=== PATIENT | female | born 1990 | race Caucasian/White ===

== ENCOUNTER 2019-04-03 20:36 | Inpatient (IN) | payer OTHER ==
--- NOTE | 2019-04-03 21:40 | HP ---
Past Medical History - Primary Care Physician PCP:: Christen Salazar - Admission Chief Complaint: 29yo P1 called office earlier c/o seeing stars and chest pain, + FM, no ctx, no VB, no LOF. She was instructed to go to L&D for evaluation of PEC for which she was followed and for possible delivery. She was told not to eat. Patient reported eating a muffin after recieving instructions. History of Present Illness: 1. Prior c/s x 1 for repeat c/section 2. Followed for flactuating BPs, 24hr UA ~300mg/24hr History Source: Patient, Medical Record Limitations to Obtaining History: No Limitations - Past Medical History ...: 2 ...Para: 1 (c/section @ term) ... Weeks Gestation by Dates: 36 - Past Surgical History Past Surgical History: Yes: Hx Myomectomy: No Hx Transabdominal Cerclage: No - Smoking History Have you smoked in the past 12 months: No - Alcohol/Substance Use Hx Alcohol Use: No History of Substance Use: reports: None - Social History Usual Living Arrangement: Yes: With Spouse History of Recent Travel: No Home Medications - Allergies Allergies/Adverse Reactions: Allergies Allergy/AdvReac Type Severity Reaction Status Date / Time No Known Allergies Allergy Verified 02/20/19 16:47 - Home Medications Home Medications: Ambulatory Orders Pnv 29-1 Tablet 1 tab PO DAILY 04/03/19 Review of Systems - Review of Systems Constitutional: reports: No Symptoms Eyes: reports: No Symptoms HENT: reports: No Symptoms Neck: reports: No Symptoms Cardiovascular: reports: No Symptoms Respiratory: reports: No Symptoms Gastrointestinal: reports: No Symptoms Genitourinary: reports: No Symptoms Breasts: reports: No Symptoms Reported Musculoskeletal: reports: No Symptoms Integumentary: reports: No Symptoms Neurological: reports: No Symptoms Endocrine: reports: No Symptoms Hematology/Lymphatic: reports: No Symptoms Psychiatric: reports: No Symptoms Physical Exam - Maternity Constitutional: Yes: Well Nourished, No Distress, Calm Eyes: Yes: WNL, Conjunctiva Clear HENT: Yes: WNL, Atraumatic, Normocephalic Neck: Yes: WNL, Supple, Trachea Midline Cardiovascular: Yes: WNL, Regular Rate and Rhythm Lungs: Clear to auscultation Breast(s): Yes: WNL - Abdominal Exam/OB Fundal Height: 36 (mild RUQ tenderness) Number of Fetuses: Single Presentation: Vertex Contractions: Yes Regularity: Irritability Intensity: Unaware Monitor Mode: External Heart Rate (range): 140 Category: I Accelerations: Uniform Decelerations: None - Vaginal Exam/OB Vaginal Bleediing: No Speculum Exam: No Dilatation (cm): deferr Amniotic Membrane Status: Intact - Physical Exam Musculoskeletal: Yes: WNL Extremities: Yes: WNL Edema: No Integumentary: Yes: WNL Deep Tendon Reflex Grade: Normal +2 ...Motor Strength: WNL Psychiatric: Yes: WNL, Alert, Oriented Assessment/Plan 29yo P1 @ 36wks with sever Preeclampsia secondary to neurological complains Labs without evidence of HELLP Admit to L&D start MgSo4 for seizure prophylaxis Administer Celestone for prematurity Keep NPO, she last ate at 6pm Abrams to monitor UA output Labs with Mg level Q 4 hr to monitor for signs of HELLP deliver if any signs of worsening disease or upon Celestone completion Plan discussed with Dr. Gaona
[2019-04-03] MEDS ORDERED: MAGNESIUM SULFATE 20GM/500ML - 20 GM/500 ML INFUS.BAG IVPB SCH (21:45)
[2019-04-03] MEDS ORDERED: BETAMET ACET/BETAMET NA PH 30 MG/5 ML VIAL IM ONE ×2 (21:50→23:45)
[2019-04-03] MEDS ORDERED: MAGNESIUM SULFATE 20GM/500ML - 20 GM/500 ML INFUS.BAG ONE (21:56)
[2019-04-03] MEDS: ELECTROLYTE-148 SOLN 1,000 ML IV SCH (22:00)
[2019-04-03 22:17] LABS: PH,URINE 6.5 (5.0-8.0); URINE APPEARANCE CLEAR; URINE BILIRUBIN NEGATIVE (NEGATIVE); URINE COLOR YELLOW; URINE GLUCOSE (UA) NEGATIVE (NEGATIVE); URINE KETONE NEGATIVE (NEGATIVE); URINE LEUK ESTERASE NEGATIVE (NEGATIVE); URINE NITRITE NEGATIVE (NEGATIVE); URINE PROTEIN NEGATIVE (NEGATIVE)
[2019-04-03 22:19] LABS: BASO % 0.8 % (0-2.0); EOS % 0.7 % (0-4.5); HEMATOCRIT 33.7 % (32.4-45.2); HEMOGLOBIN 10.9 GM/dL (10.7-15.3); LYMPH % 25.7 % (8-40); MCH 25.6 pg (25.7-33.7); MCHC 32.4 g/dl (32.0-36.0); MEAN CELL VOLUME 78.8 fl (80-96); MEAN PLT VOLUME 10.2 fl (7.5-11.1); MONO % 8.8 % (3.8-10.2); PLATELET COUNT 249 K/MM3 (134-434); RBC 4.27 M/mm3 (3.60-5.2); RETICULOCYTES 2.28 % (0.5-1.5); WHITE BLOOD COUNT 15.5 K/mm3 (4.0-10.0)
[2019-04-03 22:29] LABS: INR 0.98 (0.83-1.09); PROTHROMBIN TIME (PATIENT) 11.6 SEC (9.7-13.0)
[2019-04-03 22:32] LABS: ACTIVATED PTT 29.4 SECONDS (25.2-36.5)
[2019-04-03 22:41] LABS: CALCIUM 9.5 mg/dL (8.5-10.1); CREATININE 0.6 mg/dL (0.55-1.3); POTASSIUM 4.1 mmol/L (3.5-5.1); URIC ACID 4.4 mg/dL (2.6-7.2)
[2019-04-03] MEDS ORDERED: BETAMET ACET/BETAMET NA PH 30 MG/5 ML VIAL ONE (23:09)
[2019-04-04] MEDS: BENZOCAINE 20% 57 GM BOTTLE TP SCH (01:30)
[2019-04-04 02:09] VITALS: BMI 33.6
[2019-04-04 02:23] LABS: BASO % 0.6 % (0-2.0); EOS % 0.4 % (0-4.5); HEMATOCRIT 34.1 % (32.4-45.2); HEMOGLOBIN 11.1 GM/dL (10.7-15.3); MCH 25.8 pg (25.7-33.7); MCHC 32.5 g/dl (32.0-36.0); MEAN CELL VOLUME 79.5 fl (80-96); MONO % 2.7 % (3.8-10.2); NEUT % 81.3 % (42.8-82.8); PLATELET COUNT 266 K/MM3 (134-434); RDW 15.4 % (11.6-15.6); WHITE BLOOD COUNT 18.1 K/mm3 (4.0-10.0)
[2019-04-04 02:49] LABS: ALBUMIN 2.7 g/dl (3.4-5.0); BILIRUBIN,TOTAL 0.8 mg/dL (0.2-1); BLOOD UREA NITROGEN 6.2 mg/dL (7-18); CALCIUM 8.5 mg/dL (8.5-10.1); CREATININE 0.5 mg/dL (0.55-1.3); MAGNESIUM 3.8 mg/dL (1.8-2.4); TOT PROT 6.8 g/dl (6.4-8.2)
[2019-04-04 02:50] LABS: ALBUMIN 2.7 g/dl (3.4-5.0); BILIRUBIN,DIRECT 0.1 mg/dL (0.0-0.2); BILIRUBIN,TOTAL 0.8 mg/dL (0.2-1); TOT PROT 6.7 g/dl (6.4-8.2)
[2019-04-04] MEDS: ELECTROLYTE-148 SOLN 1,000 ML IV SCH (08:00)
[2019-04-04 08:33] LABS: BASO % 0.9 % (0-2.0); HEMATOCRIT 33.1 % (32.4-45.2); LYMPH % 12.5 % (8-40); MCH 26.2 pg (25.7-33.7); MCHC 33.3 g/dl (32.0-36.0); MEAN CELL VOLUME 78.7 fl (80-96); MEAN PLT VOLUME 10.2 fl (7.5-11.1); MONO % 1.6 % (3.8-10.2); PLATELET COUNT 247 K/MM3 (134-434); RBC 4.21 M/mm3 (3.60-5.2); RDW 15.4 % (11.6-15.6)
[2019-04-04 08:58] LABS: BLOOD UREA NITROGEN 5.2 mg/dL (7-18); CALCIUM 8.4 mg/dL (8.5-10.1); CREATININE 0.4 mg/dL (0.55-1.3); POTASSIUM 4.2 mmol/L (3.5-5.1)
[2019-04-04] MEDS ORDERED: ELECTROLYTE-148 SOLN 1,000 ML IV SCH ×3 (09:00→13:15)
[2019-04-04] MEDS ORDERED: CITRIC ACID/SODIUM CITRATE 30 ML UNIT-DOSE CUP PO ONE (09:00)
[2019-04-04] MEDS ORDERED: BETAMET ACET/BETAMET NA PH 30 MG/5 ML VIAL IM ONE (10:25)
[2019-04-04] MEDS ORDERED: CEFAZOLIN 2 GM/D5W 2 GM/50 ML ML IVPB ONE ×2 (10:33→12:00)
--- NOTE | 2019-04-04 10:46 | PN ---
Progress Note (short form) - Note Progress Note: 29yo P1 @ 36.1 wks with Sever Preeclampsia on MgSo4 She is stable, no neurological symptoms today and no signs of HELLP She is status post Celestone #1 11pm will administer #2 with 12hr interval and proceed with delivery Patient is very anxious and has strong psychosomatic component contributing to her symptomatology She agrees and desires to proceed with repeat c/section Consent signed and witnessed, all r/b/a discussed Anesthesia and Neonatology informed
[2019-04-04] MEDS ORDERED: ceFAZolin 2 GRAM PREMIX BAG IVPB ONE (11:00)
[2019-04-04] MEDS ORDERED: morphine SULFATE/PF 0.5 MG/ML (2cc Syringe - QUVA) ONE (11:25)
[2019-04-04] MEDS ORDERED: OXYTOCIN 20 UNITS in 0.9% NS 20 UNIT/1,000 ML INFUS.BAG IV ONE ×2 (12:05→13:24)
[2019-04-04] MEDS ORDERED: MIDAZOLAM HCL 2 MG/2 ML SINGLE DOSE VIAL ONE (12:27)
[2019-04-04] MEDS ORDERED: BENZOCAINE 28 GM HEMORRHOIDAL OINTMENT PR PRN (12:57)
[2019-04-04] MEDS ORDERED: IBUPROFEN 800 MG/8 ML IJ IVPB PRN (12:57)
[2019-04-04] MEDS ORDERED: WITCH HAZEL 50% (TUCKS) 40 PAD/JAR PAD TP PRN (12:57)
[2019-04-04] MEDS ORDERED: oxyCODONE HCL 5 MG TABLET PO PRN (12:57)
[2019-04-04] MEDS ORDERED: diphenhydrAMINE HCL 25 MG CAPSULE (FP) PO PRN (12:57)
[2019-04-04] MEDS ORDERED: BENZOCAINE 20% 57 GM BOTTLE TP PRN (12:57)
[2019-04-04] MEDS ORDERED: METHYLERGONOVINE MALEATE 0.2 MG/1 ML AMP IM PRN (12:57)
[2019-04-04] MEDS ORDERED: MAGNESIUM SULFATE 20GM/500ML - 20 GM/500 ML INFUS.BAG IVPB SCH (13:00)
[2019-04-04] MEDS ORDERED: OXYTOCIN 20 UNITS in 0.9% NS 20 UNIT/1,000 ML INFUS.BAG IV SCH (13:00)
--- NOTE | 2019-04-04 13:12 | OP ---
Operative Note - Note: Operative Date: 04/04/19 Pre-Operative Diagnosis: 29yo P1, prior c/section with sever preeclampsia for repeat c/section Operation: Repeat c/section Findings: Viable Female APGARs 03/06 6.14lb Uterine to anterior abdominal wall adhesions Post-Operative Diagnosis: Same as Pre-op Surgeon: Christen Salazar Anesthesiologist/DISPENSING OPTICIAN APPRENTICE: Lisandro Webber Anesthesia: Spinal Estimated Blood Loss (mls): 500 Drains, Volume Out (mls): 400 Fluid Volume Replaced (mls): 1,600 Operative Report Dictated: Yes
--- NOTE | 2019-04-04 13:19 | PN ---
Delivery - Delivery Section: Repeat Type of Anesthesia: Spinal EBL (cc): 500 Delivery, Single - Stages of Labor Date of Delivery: 04/04/19 Date Placenta Delivered: 04/04/19 Placenta: Yes: Expressed - Condition of Infant Special Services Supervisor/Academic Affairs Manager Present: Yes Name: Brian Solis Gender: Female Weight: 6 lb 14 oz Position: Right, OA - 1 Minute Total Score: 9 5 Minutes Total Score: 9 - Charlotte Feeding Plan Initial Plan: Exclusive throughout hospitalization Benefits of Exclusively reinforced: Yes Remarks - Remarks Remarks: Uncomplicated delivery of head and shoulders Abdominal adhesions encountered upon entry
[2019-04-04] MEDS ORDERED: MAGNESIUM SULFATE 20GM/500ML - 20 GM/500 ML INFUS.BAG ONE (13:25)
[2019-04-04] MEDS ORDERED: ONDANSETRON 4 MG/2 ML VIAL IVPUSH PRN (14:20)
[2019-04-04] MEDS ORDERED: ACETAMINOPHEN INJECTION 100 ML IVPB ONE ×2 (14:48→21:06)
[2019-04-04] MEDS: ACETAMINOPHEN 1000 MG/100 ML VIAL (NON FORMULARY) IVPB PRN ×2 (15:00→21:10)
[2019-04-04] MEDS: MAGNESIUM SULFATE 20GM/500ML - 20 GM/500 ML INFUS.BAG IVPB SCH (18:45)
--- NOTE | 2019-04-04 20:28 | OP ---
DATE OF OPERATION: 04/04/2019 PREOPERATIVE DIAGNOSIS: A 29-year-old para 1, prior section with severe preeclampsia. POSTOPERATIVE DIAGNOSIS: A 29-year-old para 1, prior section with severe preeclampsia. OPERATION: Repeat section. FINDINGS: Abdominal adhesions of uterus to anterior abdominal wall and viable female, Apgars 9 and 9, weight 6 pounds 14 ounces. Normal bilateral tubes and ovaries. SURGEON: Christen Salazar MD FINAL CIGAR AND BOX EXAMINER: Froylan Berrios MD ANESTHESIOLOGIST: Lisandro Webber MD ANESTHESIA: Spinal. DESCRIPTION OF OPERATIVE PROCEDURE: After assuring informed consent, patient was brought to the operating room where spinal anesthesia was administered. Patient was placed in dorsal supine position with left lateral tilt. Abdomen was prepped and draped in sterile fashion. Pfannenstiel skin incision was created with scalpel, carried down to the level of fascia with Bovie cautery. Fascia was incised and extended bilaterally with Bovie cautery. It was dissected off the rectus abdominis muscle with the Bovie cautery. Muscle was split in the midline, and peritoneum was entered with Metzenbaum scissors. There was good visualization of underlying structures. The adhesions were noted and clamped and tied with 2-0 Vicryl ties. The bladder retracted with the lower edge of the Lucas. Uterine incision was created with a scalpel and extended bilaterally bluntly and with bandage scissors. Infant's head was delivered atraumatically, as well as bilateral shoulders and the rest of the body. Cord was clamped and cut. Infant was handed to awaiting cold working inspector, Dr. Solis. Cord was given for cord gas sampling. Placenta was expressed. Uterus was cleared of clots and debris, and cervix was opened with ring forceps. The uterus was repaired in 2 layers with 0 Biosyn. The abdomen was irrigated, and peritoneum was repaired with 0 Biosyn. Muscle was reapproximated in the midline with 0 Biosyn, and fascia was repaired with 0 Vicryl. A few subcutaneous stitches were placed with 0 Biosyn. Skin was closed with 4-0 Biosyn in a running V-Loc stitch. Excellent hemostasis was achieved throughout the procedure. Sponge and instrument count was correct x2. Estimated blood loss was 500 mL. Urine output was 400 mL. Patient received 1600 mL of IV fluids. She tolerated the procedure well and was brought to the recovery room in stable condition. Guilherme [id number]
[2019-04-04] MEDS ORDERED: MAGNESIUM 4GM/H20 - 4 GM/100 ML IVPB IVPB ONE (21:45)
[2019-04-04] MEDS ORDERED: diphenhydrAMINE HCL 25 MG CAPSULE (FP) PO ONE (23:40)
[2019-04-05] MEDS ORDERED: MAGNESIUM SULFATE 20GM/500ML - 20 GM/500 ML INFUS.BAG ONE (02:35)
[2019-04-05] MEDS ORDERED: OXYTOCIN 20 UNITS in 0.9% NS 20 UNIT/1,000 ML INFUS.BAG IV ONE (02:35)
[2019-04-05] MEDS ORDERED: ACETAMINOPHEN INJECTION 100 ML IVPB ONE ×2 (02:50→09:09)
[2019-04-05] MEDS: ACETAMINOPHEN 1000 MG/100 ML VIAL (NON FORMULARY) IVPB PRN ×2 (03:00→09:15)
[2019-04-05] MEDS: MAGNESIUM SULFATE 20GM/500ML - 20 GM/500 ML INFUS.BAG IVPB SCH (03:00)
--- NOTE | 2019-04-05 08:11 | PN ---
Progress Note (short form) - Note Progress Note: 29F s/p repeat C/S under Duramorph spinal anesthesia. Patient w/o complaints today. Continues on Mg++ infusion for pre-eclampsia, seizure prophylaxis. VS: Vital Signs Period Temp Pulse Resp BP Sys/Uriostegui Pulse Ox Last 24 Hr 97.8 F-98.9 F 58-102 17-20 115-147/62-94 98-99 Lying in bed, NAD RRR, CTAB COLUNGA -No complications associated with spinal -Call with questions
--- NOTE | 2019-04-05 08:34 | PN ---
Post Progress Note - Subjective Subjective: Patient without acute complaints. No headaches or other s/sx's of PEC. No nausea or vomiting. Not ambulating yet. Denies fevers or chills. Pain well controlled with oral pain medication. Pumping/breast feeding without issue. Passing flatus, no BM. Post Day: 1 Type of Delivery: Repeat C/S Vital Signs: Vital Signs Temperature 97.9 F 04/05/19 04:00 Pulse Rate 70 04/05/19 08:00 Respiratory Rate 18 04/05/19 08:00 Blood Pressure 119/83 04/05/19 08:00 O2 Sat by Pulse Oximetry (%) 98 04/04/19 14:25 Breast Exam: Yes: Soft Uterus: Yes: Fundus Firm, Fundus below umbilicus, Non-tender Incision: Yes: Dressing dry and intact Abdomen/GI: Yes: Abdomen soft, Passing flatus Lochia: Yes: Rubra Lochia, amount: Small Extremities: Yes: Calves non-tender, Edema Perineum: Yes: Intact Activity: Ambulating - Labs Labs: CBC WBC 16.0 K/mm3 (4.0-10.0) H 04/04/19 08:10 RBC 4.21 M/mm3 (3.60-5.2) 04/04/19 08:10 Hgb 11.0 GM/dL (10.7-15.3) 04/04/19 08:10 Hct 33.1 % (32.4-45.2) 04/04/19 08:10 MCV 78.7 fl (80-96) L 04/04/19 08:10 MCH 26.2 pg (25.7-33.7) 04/04/19 08:10 MCHC 33.3 g/dl (32.0-36.0) 04/04/19 08:10 RDW 15.4 % (11.6-15.6) 04/04/19 08:10 Plt Count 247 K/MM3 (134-434) 04/04/19 08:10 MPV 10.2 fl (7.5-11.1) 04/04/19 08:10 Absolute Neuts (auto) 13.6 K/mm3 (1.5-8.0) H 04/04/19 08:10 Neutrophils % 85.0 % (42.8-82.8) H 04/04/19 08:10 Lymphocytes % 12.5 % (8-40) 04/04/19 08:10 Monocytes % 1.6 % (3.8-10.2) L 04/04/19 08:10 Eosinophils % 0.0 % (0-4.5) D 04/04/19 08:10 Basophils % 0.9 % (0-2.0) 04/04/19 08:10 Nucleated RBC % 0 % (0-0) 04/04/19 08:10 Retic Count 2.28 % (0.5-1.5) H 04/03/19 22:00 Haptoglobin 105 mg/dL (34-200) 04/03/19 22:00 Assessment/Plan 34yo P2 s/p reepat LT C/S, doing well stable, afebrile. BP's are now normal. The pt is asymptomatic for s/sxs of severe PEC or anemia. Plan to stop MgSO4 at this time. Mg levels are wnl. Good UO. Postoperative care instructions reviewed care instructions reviewed. Continue routine postop care. Ambulation encouraged.
[2019-04-05 08:44] LABS: BASO % 0.3 % (0-2.0); HEMATOCRIT 32.9 % (32.4-45.2); HEMOGLOBIN 10.7 GM/dL (10.7-15.3); LYMPH % 8.8 % (8-40); MCH 25.8 pg (25.7-33.7); MCHC 32.4 g/dl (32.0-36.0); MEAN CELL VOLUME 79.8 fl (80-96); MEAN PLT VOLUME 10.5 fl (7.5-11.1); MONO % 6.6 % (3.8-10.2); NEUT % 84.3 % (42.8-82.8); PLATELET COUNT 252 K/MM3 (134-434); RBC 4.13 M/mm3 (3.60-5.2); RDW 15.2 % (11.6-15.6); WHITE BLOOD COUNT 22.8 K/mm3 (4.0-10.0)
[2019-04-05 09:12] LABS: ALBUMIN 2.4 g/dl (3.4-5.0); BILIRUBIN,DIRECT 0.1 mg/dL (0.0-0.2); BILIRUBIN,TOTAL 0.7 mg/dL (0.2-1); MAGNESIUM 4.2 mg/dL (1.8-2.4); TOT PROT 6.2 g/dl (6.4-8.2)
[2019-04-05] MEDS ORDERED: IBUPROFEN 800 MG/8 ML IJ IVPB ONE (11:32)
[2019-04-05] MEDS ORDERED: BISACODYL 10 MG SUPP.RECT PR PRN (12:58)
[2019-04-05 13:34] LABS: ANISOCYTOSIS 0; MACROCYTOSIS 0; PLATELET ESTIMATE NORMAL
[2019-04-05] MEDS: IBUPROFEN 600 MG TABLET (FP) PO PRN ×2 (16:07→21:28)
[2019-04-05] MEDS: SIMETHICONE 80 MG TAB.CHEW (FP) PO PRN ×2 (16:07→20:18)
[2019-04-05] MEDS: SENNOSIDES/DOCUSATE COMBO (SENNA PLUS) TABLET (UD) PO PRN (20:19)
[2019-04-05] MEDS: oxyCODONE HCL 5 MG TABLET PO PRN (21:29)
[2019-04-06] MEDS: IBUPROFEN 600 MG TABLET (FP) PO PRN ×4 (02:48→21:44)
[2019-04-06] MEDS: SIMETHICONE 80 MG TAB.CHEW (FP) PO PRN ×5 (02:49→21:44)
[2019-04-06] MEDS: oxyCODONE HCL 5 MG TABLET PO PRN ×3 (07:47→17:23)
[2019-04-06 07:53] LABS: BASO % 1.1 % (0-2.0); HEMATOCRIT 30.4 % (32.4-45.2); LYMPH % 19.7 % (8-40); MCH 25.8 pg (25.7-33.7); MCHC 32.7 g/dl (32.0-36.0); MEAN PLT VOLUME 9.8 fl (7.5-11.1); MONO % 8.9 % (3.8-10.2); NEUT % 70.3 % (42.8-82.8); PLATELET COUNT 255 K/MM3 (134-434); RBC 3.85 M/mm3 (3.60-5.2); RDW 15.6 % (11.6-15.6)
--- NOTE | 2019-04-06 09:13 | PN ---
Post Progress Note - Subjective Subjective: Patient without acute complaints. Denies headache, change in vision, right upper quadrant pain. Reports tolerating oral intake without nausea or vomiting. Ambulating without dizziness. Denies fevers or chills. Pain well controlled with oral pain medication. without difficulty. Passing flatus. Post Day: 2 Type of Delivery: Repeat C/S Vital Signs: Vital Signs Temperature 98.0 F 04/05/19 21:32 Pulse Rate 76 04/06/19 06:00 Respiratory Rate 20 04/06/19 06:00 Blood Pressure 137/89 04/06/19 06:00 O2 Sat by Pulse Oximetry (%) 98 04/04/19 14:25 Breast Exam: Yes: Soft Uterus: Yes: Fundus Firm, Fundus below umbilicus Incision: Yes: Sutures intact. No: Redness, Oozing Abdomen/GI: Yes: Abdomen soft, Tender (mild incisional tenderness), Passing flatus, Tolerating PO Lochia: Yes: Rubra Lochia, amount: Small Extremities: Yes: Calves non-tender, Edema (trace) Activity: Ambulating - Labs Labs: CBC WBC 17.0 K/mm3 (4.0-10.0) H 04/06/19 07:25 RBC 3.85 M/mm3 (3.60-5.2) 04/06/19 07:25 Hgb 10.0 GM/dL (10.7-15.3) L 04/06/19 07:25 Hct 30.4 % (32.4-45.2) L 04/06/19 07:25 MCV 79.0 fl (80-96) L 04/06/19 07:25 MCH 25.8 pg (25.7-33.7) 04/06/19 07:25 MCHC 32.7 g/dl (32.0-36.0) 04/06/19 07:25 RDW 15.6 % (11.6-15.6) 04/06/19 07:25 Plt Count 255 K/MM3 (134-434) 04/06/19 07:25 MPV 9.8 fl (7.5-11.1) 04/06/19 07:25 Absolute Neuts (auto) 12.0 K/mm3 (1.5-8.0) H 04/06/19 07:25 Neutrophils % 70.3 % (42.8-82.8) 04/06/19 07:25 Neutrophils % (Manual) 89.0 % (42.8-82.8) H 04/05/19 07:18 Band Neutrophils % 0.0 % 04/05/19 07:18 Lymphocytes % 19.7 % (8-40) D 04/06/19 07:25 Lymphocytes % (Manual) 5.0 % (8-40) L 04/05/19 07:18 Monocytes % 8.9 % (3.8-10.2) 04/06/19 07:25 Monocytes % (Manual) 6 % (3.8-10.2) 04/05/19 07:18 Eosinophils % 0.0 % (0-4.5) 04/06/19 07:25 Eosinophils % (Manual) 0.0 % (0-4.5) 04/05/19 07:18 Basophils % 1.1 % (0-2.0) D 04/06/19 07:25 Basophils % (Manual) 0.0 % (0-2.0) 04/05/19 07:18 Myelocytes % (Man) 0 % (0-2) 04/05/19 07:18 Promyelocytes % (Man) 0 % (0-2) 04/05/19 07:18 Blast Cells % (Manual) 0 % (0-0) 04/05/19 07:18 Nucleated RBC % 0 % (0-0) 04/06/19 07:25 Metamyelocytes 0 % (0-2) 04/05/19 07:18 Hypochromia 0 04/05/19 07:18 Platelet Estimate Normal 04/05/19 07:18 Polychromasia 0 04/05/19 07:18 Poikilocytosis 0 04/05/19 07:18 Anisocytosis 0 04/05/19 07:18 Microcytosis 0 04/05/19 07:18 Macrocytosis 0 04/05/19 07:18 Retic Count 2.28 % (0.5-1.5) H 04/03/19 22:00 Haptoglobin 105 mg/dL (34-200) 04/03/19 22:00 Assessment/Plan 29 yo POD # 2 s/p repeat CD for mild preeclampsia, afebrile, vital signs stable , doing well. 1. s/p magnesium PP BPs stable Asymptomatic for preeclampsia 2. Continue routine postoperative care. 3. Encourage ambulation and incentive spirometer use 4. Continue oral pain medication 5. Anticipate discharge home postoperative day #3 or #4
[2019-04-06] MEDS: ACETAMINOPHEN 325 MG TABLET (FP) PO PRN ×2 (12:32→21:44)
[2019-04-06] MEDS: BENZOCAINE 20% 57 GM BOTTLE TP SCH (14:28)
--- NOTE | 2019-04-06 17:59 | PATH ---
Surgical Pathology Report Patient Name: MARTIN FARFAN Med. Rec. #: [id number] /Age/Gender: 1990 (Age: 29) / F Account: [id number] Location: [facility] OBS/PRODUCTION SERVICE MANAGER Taken: 04/04/2019 Received: 04/05/2019 Reported: 04/06/2019 Physicians: Christen Salazar M.D. Specimen(s) Received PLACENTA Clinical History Repeat CS 36.1 weeks, severe preeclampsia Final Diagnosis PLACENTA, SECTION: 652 G THIRD TRIMESTER PLACENTA WITH TRIVASCULAR UMBILICAL CORD AND UNREMARKABLE PLACENTAL MEMBRANES. Electronically Signed Beti Longoria M.D. Gross Description The specimen is received fresh labeled placenta and is a 652 gram, 22 x 19 x 1.5 cm. placenta with attached membranes and umbilical cord. The attached membranes are marsh and opaque and insert marginally. The umbilical cord measures 23 cm. in length and averages 1.5 cm. in diameter. The cord inserts eccentrically, 7 cm. to the nearest margin. No true knots or strictures are identified. Cut surface of the umbilical cord reveals 3 vessels. The surface is lopez-blue with minimal fibrin deposition and appropriate caliber vessels. The maternal surface is red-brown with focal defects. Sectioning reveals red-brown, spongy parenchyma. No lesions are identified. Architecture Department Chair sections are submitted in three cassettes as follows: 1- membrane rolls and umbilical cord; 2-3- full thickness sections of placenta. MLSZ/04/05/2019 sanml/04/05/2019
[2019-04-06] MEDS: SENNOSIDES/DOCUSATE COMBO (SENNA PLUS) TABLET (UD) PO PRN (20:46)
[2019-04-07] MEDS: ACETAMINOPHEN 325 MG TABLET (FP) PO PRN ×4 (06:29→22:53)
[2019-04-07] MEDS: SIMETHICONE 80 MG TAB.CHEW (FP) PO PRN ×5 (06:29→22:54)
[2019-04-07] MEDS: IBUPROFEN 600 MG TABLET (FP) PO PRN ×5 (06:30→22:54)
[2019-04-08] MEDS: IBUPROFEN 600 MG TABLET (FP) PO PRN (06:35)
[2019-04-08] MEDS: ACETAMINOPHEN 325 MG TABLET (FP) PO PRN (06:35)
[2019-04-08 11:46] VITALS: BP 116/72; PULSE 57; TEMP 99
--- NOTE | 2019-04-08 14:48 | DS ---
Physical Exam-INSPECTOR FILTERS Vital Signs: Vital Signs Temperature 99.0 F 04/08/19 08:00 Pulse Rate 57 L 04/08/19 08:00 Respiratory Rate 20 04/08/19 08:00 Blood Pressure 116/72 04/08/19 08:00 O2 Sat by Pulse Oximetry (%) 98 04/06/19 09:00 Constitutional: Yes: Well Nourished, No Distress, Calm Eyes: Yes: WNL, Conjunctiva Clear HENT: Yes: WNL, Atraumatic Neck: Yes: WNL, Supple, Trachea Midline Cardiovascular: Yes: WNL, Regular Rate and Rhythm Respiratory: Yes: WNL, Regular, CTA Bilaterally Gastrointestinal: Yes: WNL, Normal Bowel Sounds, Soft Labs: CBC, BMP 04/06/19 07:25 04/04/19 02:00 Delivery - Delivery Section: Repeat Type of Anesthesia: Spinal Episiotomy/Laceration: None EBL (cc): 500 Delivery, Single - Stages of Labor Date of Delivery: 04/04/19 Time of Delivery: 12:10 Time Placenta Delivered: 12:11 Placenta: Yes: Expressed - Condition of Infant Senior Network Security Engineer/Quality Assurance Test Program Manager Present: Yes Name: Brian Solis Infant Gender: Female Weight: 6 lb 14 oz Position: Right, OT Total Hours ROM (Hrs/Mins): 0/2 - 1 Minute Total Score: 9 5 Minutes Total Score: 9 - Feeding Plan Initial Plan: Exclusive throughout hospitalization Benefits of Exclusively reinforced: Yes Discharge Summary Reason For Visit: LABOR ADMIT - Instructions - Home Medications Comprehensive Discharge Medication List: Ambulatory Orders Pnv 29-1 Tablet 1 tab PO DAILY 04/03/19
== END 2019-04-08 16:20 | disposition home or self-care (01) | DRG 540 ==
LOC: JDEL 20:36 → JLDR 20:45 → J3W 04-05 14:30
PROVIDERS: ADMIT Obstetrics & Gynecology; ATTEND Obstetrics & Gynecology
PROC: 10D00Z1 Extraction of Products of Conception, Low, Open Approach (ICD-10-PCS; principal; 2019-04-04)
DX: O14.13 Severe pre-eclampsia, third trimester (principal); O60.14X0 Preterm labor third trimester with preterm delivery third trimester, not applicable or unspecified; O34.211 Maternal care for low transverse scar from previous cesarean delivery; N85.8 Other specified noninflammatory disorders of uterus; Z3A.36 36 weeks gestation of pregnancy; Z37.0 Single live birth
CPT/HCPCS: 36415; 36600; 80048; 80053; 80076; 81003; 82803; 82977; 83010; 83735; 84450; 84460; 84550; 85025; 85044; 85610; 85730; 86593; 86850; 86900; 86901; 87389; 96372; J0131

== ENCOUNTER 2025-04-01 | Observation (INO) | payer OTHER ==
[2025-04-01] MEDS: DEXTROSE 5%-LACTATED RINGERS 1,000 ML IV SCH (01:20)
[2025-04-01 01:38] LABS: ABSOLUTE IMMATURE GRANULOCYTES 0.08 x10^3/uL (0.0-0.031); BASOPHILS # 0.06 x10^3/uL (0.01-0.08); EOSINOPHIL % 1.7 % (0.7-5.8); EOSINOPHILS # 0.29 x10^3/uL (0.04-0.36); MCHC 32.4 g/dl (32.2-35.5); MEAN CELL VOLUME 88.4 fl (79.4-94.8); MEAN PLT VOLUME 10.5 fl (9.4-12.3); MONOCYTE # 1.44 x10^3/uL (0.24-0.86); MONOCYTE % 8.4 % (4.7-12.5); RDW 12.6 % (12.1-16.8); URINE APPEARANCE CLEAR; URINE BILIRUBIN NEGATIVE (NEGATIVE); URINE COLOR YELLOW; URINE GLUCOSE (UA) NEGATIVE (NEGATIVE); URINE KETONE NEGATIVE (NEGATIVE); URINE LEUK ESTERASE NEGATIVE (NEGATIVE); URINE NITRITE NEGATIVE (NEGATIVE); URINE PROTEIN NEGATIVE (NEGATIVE); URINE UROBILINOGEN 0.2 mg/dL (0.2-1.0)
[2025-04-01] MEDS ORDERED: NIFEdipine 10 MG CAPSULE (FP) ONE (01:43)
[2025-04-01] MEDS: NIFEdipine 10 MG CAPSULE (FP) PO ONE (01:45)
[2025-04-01 02:05] LABS: GLUCOSE,RANDOM 94.0 mg/dL (74-106); TOT PROT 6.9 g/dl (6.4-8.2)
[2025-04-01 02:06] LABS: CO2 23.0 mmol/L (21-32)
[2025-04-01 02:08] LABS: ALK PHOS 108.0 U/L (40-150)
[2025-04-01 02:10] LABS: SGPT/ALT 6.0 U/L (0-55)
[2025-04-01 02:11] LABS: CREATININE 0.41 mg/dL (0.55-1.3); SGOT/AST 13.0 U/L (5-34)
[2025-04-01] MEDS: ACETAMINOPHEN 1000 MG/100 ML BAG IVPB ONE (02:55)
[2025-04-01] MEDS ORDERED: ACETAMINOPHEN INJECTION 100 ML ONE (02:56)
[2025-04-01] MEDS: SUCRALFATE 1 GM/10 ML UNIT DOSE CUPS PO ONE ×2 (05:08→12:59)
[2025-04-01] MEDS: INDOMETHACIN 25 MG CAPSULE PO ONE ×3 (05:40→11:38)
[2025-04-01] MEDS ORDERED: BETAMET ACET/BETAMET NA PH 30 MG/5 ML VIAL ONE (08:12)
[2025-04-01] MEDS: BETAMET ACET/BETAMET NA PH 30 MG/5 ML VIAL IM ONE (08:20)
[2025-04-01 08:50] VITALS: BMI 29.6
[2025-04-01] MEDS ORDERED: TERBUTALINE SULFATE 1 MG/1 ML VIAL SQ ONE (09:09)
[2025-04-01] MEDS: TERBUTALINE SULFATE 1 MG/1 ML VIAL SQ ONE (09:12)
[2025-04-01] MEDS: SUCRALFATE 1 GM/10 ML UNIT DOSE CUPS PO SCH (18:03)
[2025-04-01] MEDS: INDOMETHACIN 25 MG CAPSULE PO SCH (18:03)
[2025-04-02] MEDS: ACETAMINOPHEN 1000 MG/100 ML BAG IVPB ONE (15:09)
[2025-04-02 19:45] LABS: ABSOLUTE IMMATURE GRANULOCYTES 0.05 x10^3/uL (0.0-0.031); BASOPHILS # 0.04 x10^3/uL (0.01-0.08); EOSINOPHIL % 1.9 % (0.7-5.8); EOSINOPHILS # 0.27 x10^3/uL (0.04-0.36); MCHC 32.4 g/dl (32.2-35.5); MEAN CELL VOLUME 88.7 fl (79.4-94.8); MEAN PLT VOLUME 10.8 fl (9.4-12.3); MONOCYTE # 1.13 x10^3/uL (0.24-0.86); MONOCYTE % 8.0 % (4.7-12.5); RDW 12.7 % (12.1-16.8)
[2025-04-02 20:03] LABS: GLUCOSE,RANDOM 87.0 mg/dL (74-106); TOT PROT 6.4 g/dl (6.4-8.2)
[2025-04-02 20:04] LABS: CO2 22.0 mmol/L (21-32)
[2025-04-02 20:05] LABS: ALK PHOS 113.0 U/L (40-150)
[2025-04-02 20:08] LABS: CREATININE 0.4 mg/dL (0.55-1.3); SGOT/AST 8.0 U/L (5-34); SGPT/ALT 7.0 U/L (0-55)
[2025-04-02] MEDS: ACETAMINOPHEN 500 MG TABLET (FP) PO PRN (23:00)
[2025-04-03 10:04] VITALS: BP 117/80; PULSE 86; RESP 17; TEMP 97.9
[2025-04-03] MEDS ORDERED: BISACODYL 10 MG SUPP.RECT PR PRN (12:10)
== END 2025-04-03 16:55 | disposition home or self-care (01) ==
LOC: JDEL → JLDR 12:40 → J3W 13:14
PROVIDERS: ADMIT Obstetrics & Gynecology; ATTEND Obstetrics & Gynecology
PROC: 3E033NZ Introduction of Analgesics, Hypnotics, Sedatives into Peripheral Vein, Percutaneous Approach (ICD-10-PCS; principal; 2025-04-01)
PROC: 3E023GC Introduction of Other Therapeutic Substance into Muscle, Percutaneous Approach (ICD-10-PCS; 2025-04-01)
DX: O26.892 Other specified pregnancy related conditions, second trimester (principal); O16.2 Unspecified maternal hypertension, second trimester; Z3A.26 26 weeks gestation of pregnancy; R10.9 Unspecified abdominal pain; Z90.49 Acquired absence of other specified parts of digestive tract
CPT/HCPCS: 36415; 59025; 76700-TC; 76815-TC; 80053; 81003; 82570; 82977; 83010; 84156; 84550; 85025; 87086; G0378